=== PATIENT | male | born 1985 | race Caucasian/White ===

== ENCOUNTER 2023-03-01 18:09 | Emergency (ER) | payer OTHER | END 2023-03-01 18:33 | disposition left against medical advice (07) | LOC: ED 18:09 | DX: S61.452A Open bite of left hand, initial encounter (principal); S61.451A Open bite of right hand, initial encounter; Z53.21 Procedure and treatment not carried out due to patient leaving prior to being seen by health care provider; W54.0XXA Bitten by dog, initial encounter; Y93.89 Activity, other specified; Y92.89 Other specified places as the place of occurrence of the external cause; Y99.8 Other external cause status ==

== ENCOUNTER 2023-05-25 19:49 | Emergency (ER) | payer OTHER ==
[~2023-05-25] VITALS: Ht 175.2 cm; Wt 77.1 kg
[2023-05-25] MEDS ORDERED: PRILOSEC20 M1 PO (20:07)
[2023-05-25] MEDS ORDERED: AMOX-CLAV 875-1 EACH PO (20:16)
== END 2023-05-25 21:57 | disposition home or self-care (01) ==
LOC: ED 19:49
DX: K08.89 Other specified disorders of teeth and supporting structures (principal); F17.210 Nicotine dependence, cigarettes, uncomplicated; Z79.899 Other long term (current) drug therapy

== ENCOUNTER 2023-08-28 15:26 | Emergency (ER) | payer OTHER ==
[~2023-08-28] VITALS: Ht 175.2 cm; Wt 79.8 kg
[~2023-08-28 15:26] MED LIST: AMOX-CLAV 875-1 EACH PO; PRILOSEC20 M1 PO
[2023-08-28] MEDS ORDERED: AMOXICILLIN500 M3 PO (16:28)
[2023-08-28] MEDS ORDERED: NAPROSYN500 MG PO (16:28)
== END 2023-08-28 16:43 | disposition home or self-care (01) ==
LOC: ED 15:26
DX: K02.9 Dental caries, unspecified (principal); K21.9 Gastro-esophageal reflux disease without esophagitis; Z79.2 Long term (current) use of antibiotics; Z79.899 Other long term (current) drug therapy

== ENCOUNTER 2023-10-18 22:00 | Emergency (ER) | payer OTHER ==
[~2023-10-18] VITALS: Ht 175.2 cm; Wt 81.6 kg
[~2023-10-18 22:00] MED LIST changes: +AMOXICILLIN500 M3 PO; +NAPROSYN500 MG PO
[2023-10-18] MEDS ORDERED: Ketorolac Tromethamine 60 MG/2 ML VIAL IM ONE (23:20)
[2023-10-18] MEDS ORDERED: NAPROXEN250 MG PO (23:32)
== END 2023-10-18 23:44 | disposition home or self-care (01) ==
LOC: ED 22:00
DX: S93.402A Sprain of unspecified ligament of left ankle, initial encounter (principal); S83.92XA Sprain of unspecified site of left knee, initial encounter; W19.XXXA Unspecified fall, initial encounter; Y93.89 Activity, other specified; Y92.009 Unspecified place in unspecified non-institutional (private) residence as the place of occurrence of the external cause; Y99.8 Other external cause status

== ENCOUNTER 2023-10-22 00:24 | Emergency (ER) | payer OTHER ==
[~2023-10-22] VITALS: Ht 175.2 cm; Wt 81.6 kg
[~2023-10-22 00:24] MED LIST changes: +NAPROXEN250 MG PO
[2023-10-22] MEDS ORDERED: Amoxicillin/Clavulanate Pota 875 MG TAB PO ONE (00:55)
[2023-10-22] MEDS ORDERED: Ketorolac Tromethamine 30 MG/ML VIAL IM ONE (00:55)
== END 2023-10-22 01:06 | disposition home or self-care (01) ==
LOC: ED 00:24
DX: M25.562 Pain in left knee (principal); K08.89 Other specified disorders of teeth and supporting structures; G89.29 Other chronic pain; F17.210 Nicotine dependence, cigarettes, uncomplicated

== ENCOUNTER 2023-11-21 20:23 | Emergency (ER) | payer OTHER ==
[~2023-11-21] VITALS: Ht 175.2 cm; Wt 81.6 kg
[2023-11-21] MEDS ORDERED: Motrin,Rufen800 MG PO (21:04)
[2023-11-21] MEDS ORDERED: PENICILLIN VK500 MG PO (21:04)
[2023-11-21] MEDS ORDERED: PENICILLIN V POTASSIUM 500 MG TAB PO ONE (21:05)
[2023-11-21] MEDS ORDERED: Acetaminophen/Hydrocodone 5 MG/325 MG TABLET PO ONE (21:05)
[2023-11-21] MEDS ORDERED: Lidocaine Hydrochloride 15 ML UDC PO STA (21:06)
[2023-11-21] MEDS ORDERED: BENZOCAINE 20% 11.9 GM GEL T STA (21:06)
== END 2023-11-21 21:14 | disposition home or self-care (01) ==
LOC: ED 20:23
DX: K04.7 Periapical abscess without sinus (principal); K02.9 Dental caries, unspecified; Z87.891 Personal history of nicotine dependence

== ENCOUNTER 2024-02-26 21:07 | Emergency (ER) | payer OTHER ==
[~2024-02-26] VITALS: Ht 175.2 cm; Wt 77.1 kg
[~2024-02-26 21:07] MED LIST changes: +Motrin,Rufen800 MG PO; +PENICILLIN VK500 MG PO
[2024-02-26] MEDS ORDERED: AMOX-CLAV 875-1 EACH PO (21:49)
[2024-02-26] MEDS ORDERED: Amoxicillin/Clavulanate Pota 875 MG TAB PO ONE (21:50)
== END 2024-02-26 22:13 | disposition home or self-care (01) ==
LOC: ED 21:07
DX: S51.822A Laceration with foreign body of left forearm, initial encounter (principal); F17.200 Nicotine dependence, unspecified, uncomplicated; Z79.899 Other long term (current) drug therapy; W54.0XXA Bitten by dog, initial encounter; Y93.89 Activity, other specified; Y92.89 Other specified places as the place of occurrence of the external cause; Y99.8 Other external cause status

== ENCOUNTER 2024-02-29 19:02 | Emergency (ER) | payer OTHER ==
[~2024-02-29] VITALS: Ht 175.2 cm; Wt 69.4 kg
[2024-02-29 19:57] LABS: BASO % 0.3 % (0.0-1.0); EOS % 0.4 % (1.0-4.0); HEMATOCRIT 34.2 % (42.0-52.0); LYMPH # 1.6 10*3/uL (1.3-4.4); LYMPH % 17.2 % (27.0-41.0); MEAN CELL VOLUME 89.1 fl (80.0-94.0); MEAN CORPUSCULAR HGB 29.9 pg (27.0-31.0); MEAN CORPUSCULAR HGB CONC 33.6 g/dl (33.0-37.0); MEAN PLATELET VOLUME 9.3 fl (9.6-12.3); MONO % 10.5 % (3.0-9.0); NEUT # 6.6 10*3/uL (2.3-7.9); NEUT % 71.3 % (47.0-73.0); PLATELET COUNT AUTOMATED 191 10*3/uL (130-400); RED BLOOD COUNT 3.84 10*6/uL (4.50-5.90); RED CELL DISTRI WIDTH 13.1 % (0-14.5); WHITE BLOOD COUNT 9.3 10*3/uL (4.8-10.8)
[2024-02-29 20:20] LABS: ALKALINE PHOSPHATASE 73 U/L (46-116); BUN 15 mg/dl (9-23); CHLORIDE 109 mmol/L (98-107); CPK 997 U/L (34-171); POTASSIUM 3.7 mmol/L (3.4-5.1); SGPT/ALT 23 U/L (5-49); TOTAL PROTEIN 6.7 gm/dL (6.0-8.0)
[2024-02-29 20:22] LABS: ETHYL ALCOHOL < 3.0 mg/dl (<3)
[2024-02-29] MEDS ORDERED: LORazepam 1 MG TAB PO ONE (20:25)
[2024-02-29] MEDS ORDERED: SODIUM CHLORIDE 0.9% 1,000 ML IV ONE ×2 (20:35→20:40)
[2024-02-29 22:13] LABS: BILIRUBIN Negative (Negative); BLOOD Negative (Negative); CLARITY Clear (Clear); COLOR Yellow (Yellow); GLUCOSE Negative (Negative); KETONE Trace (Negative); LEUKO ESTERASE Negative (Negative); NITRITE Negative (Negative); PH 5.5 (4.5-8.0); SPECIFIC GRAVITY 1.015 (1.001-1.030)
[2024-02-29] MEDS ORDERED: SODIUM CHLORIDE 0.9% 1,000 ML IV SCH (22:20)
[2024-02-29 22:21] LABS: MUCOUS 1+; WBC 0-2 wbc/hpf (0-5)
[2024-02-29 22:28] LABS: URINE AMPHETAMINES Positive (1000ng/ml); URINE BARBITURATES Negative (200ng/ml); URINE BENZODIAZEPINES Negative (200ng/ml); URINE CANNABINOIDS (THC) Positive (50ng/ml); URINE COCAINE Negative (300ng/ml); URINE METHADONE Negative (300ng/ml); URINE OPIATES Negative (300ng/ml); URINE PHENCYCLIDINE Negative (25ng/ml)
== END 2024-03-01 09:05 | disposition home or self-care (01) ==
LOC: ED 19:02
PROVIDERS: Nurse Practitioner
DX: M62.82 Rhabdomyolysis (principal); F15.90 Other stimulant use, unspecified, uncomplicated; D64.9 Anemia, unspecified; Z79.2 Long term (current) use of antibiotics; Z79.899 Other long term (current) drug therapy

== ENCOUNTER 2024-03-06 10:19 | Emergency (ER) | payer OTHER ==
[~2024-03-06] VITALS: Ht 175.2 cm; Wt 70.3 kg
[2024-03-06] MEDS ORDERED: PROTONIX40 MG PO (10:53)
[2024-03-06] MEDS ORDERED: Rabies Vaccine 1 ML VIAL IM ONE (10:55)
[2024-03-06 11:08] LABS: BASO % 0.3 % (0.0-1.0); EOS # 0.1 10*3/uL (0.0-0.4); EOS % 2.2 % (1.0-4.0); HEMATOCRIT 36.8 % (42.0-52.0); LYMPH # 1.7 10*3/uL (1.3-4.4); MEAN CELL VOLUME 90.2 fl (80.0-94.0); MEAN CORPUSCULAR HGB 29.4 pg (27.0-31.0); MEAN CORPUSCULAR HGB CONC 32.6 g/dl (33.0-37.0); MEAN PLATELET VOLUME 8.9 fl (9.6-12.3); MONO # 0.7 10*3/uL (0.1-1.0); MONO % 11.2 % (3.0-9.0); NEUT # 3.4 10*3/uL (2.3-7.9); NEUT % 56.6 % (47.0-73.0); PLATELET COUNT AUTOMATED 187 10*3/uL (130-400); RED BLOOD COUNT 4.08 10*6/uL (4.50-5.90); RED CELL DISTRI WIDTH 13.1 % (0-14.5)
[2024-03-06 11:27] LABS: BUN 11 mg/dl (9-23); CHLORIDE 108 mmol/L (98-107); POTASSIUM 3.8 mmol/L (3.4-5.1)
[2024-03-06] MEDS ORDERED: OMEPRAZOLE40 MG PO (12:16)
== END 2024-03-06 12:05 | disposition home or self-care (01) ==
LOC: ED 10:19
PROVIDERS: Internal Medicine
DX: Z76.0 Encounter for issue of repeat prescription (principal); Z23 Encounter for immunization

== ENCOUNTER 2024-03-09 08:48 | Emergency (ER) | payer OTHER ==
[~2024-03-09] VITALS: Ht 175.2 cm; Wt 72.6 kg
[~2024-03-09 08:48] MED LIST changes: +OMEPRAZOLE40 MG PO; +PROTONIX40 MG PO
[2024-03-09] MEDS ORDERED: Rabies Vaccine 1 ML VIAL IM ONE (09:15)
[2024-03-09] MEDS ORDERED: NICOTINE LOZENGE2 MG BC (09:24)
[2024-03-09] MEDS ORDERED: NICODERM CQ1 EAC2 T (09:24)
== END 2024-03-09 09:34 | disposition home or self-care (01) ==
LOC: ED 08:48
DX: S41.152D Open bite of left upper arm, subsequent encounter (principal); Z87.891 Personal history of nicotine dependence; W54.0XXD Bitten by dog, subsequent encounter

== ENCOUNTER 2024-03-20 10:54 | Emergency (ER) | payer OTHER ==
[~2024-03-20] VITALS: Ht 175.2 cm; Wt 78.9 kg
[~2024-03-20 10:54] MED LIST changes: +NICODERM CQ1 EAC2 T; +NICOTINE LOZENGE2 MG BC
[2024-03-20] MEDS ORDERED: Rabies Vaccine 1 ML VIAL IM ONE (11:10)
== END 2024-03-20 11:25 | disposition home or self-care (01) ==
LOC: ED 10:54
DX: S51.812D Laceration without foreign body of left forearm, subsequent encounter (principal); Z23 Encounter for immunization; W54.0XXD Bitten by dog, subsequent encounter

== ENCOUNTER 2024-08-13 08:03 | Emergency (ER) | payer OTHER ==
[~2024-08-13] VITALS: Ht 175.2 cm; Wt 71.7 kg
[2024-08-13] MEDS ORDERED: BUPRENORPHINE-1 EAC2 SL (08:17)
[2024-08-13] MEDS ORDERED: EMTRICITABINE-1 EACH PO (08:17)
[2024-08-13] MEDS ORDERED: DOXEPIN HCL50 MG PO (08:18)
[2024-08-13] MEDS ORDERED: BUSPIRONE HCL7.5 MG PO (08:18)
[2024-08-13] MEDS ORDERED: MELOXICAM15 MG PO (08:18)
[2024-08-13] MEDS ORDERED: AVPAK AZITHROM250 M1 PO (08:35)
== END 2024-08-13 08:57 | disposition home or self-care (01) ==
LOC: ED 08:03
DX: J32.9 Chronic sinusitis, unspecified (principal)

== ENCOUNTER 2025-04-10 16:08 | Emergency (ER) | payer OTHER ==
[~2025-04-10] VITALS: Ht 175.2 cm; Wt 65.8 kg
[~2025-04-10 16:08] MED LIST changes: +AVPAK AZITHROM250 M1 PO; +BUPRENORPHINE-1 EAC2 SL; +BUSPIRONE HCL7.5 MG PO; +DOXEPIN HCL50 MG PO; +EMTRICITABINE-1 EACH PO; +MELOXICAM15 MG PO
[2025-04-10] MEDS ORDERED: PENICILLIN V POTASSIUM 500 MG TAB PO ONE (18:15)
== END 2025-04-10 18:20 | disposition home or self-care (01) ==
LOC: ED 16:08
DX: K04.7 Periapical abscess without sinus (principal); K02.9 Dental caries, unspecified

== ENCOUNTER 2025-04-12 08:56 | Emergency (ER) | payer OTHER ==
[~2025-04-12] VITALS: Ht 175.2 cm; Wt 63.5 kg
[2025-04-12] MEDS ORDERED: CLINDAMYCIN HCL 300 MG CAPSULE PO ONE (09:20)
[2025-04-12] MEDS ORDERED: Amoxicillin/Clavulanate Pota 875 MG TAB PO ONE (09:20)
[2025-04-12] MEDS ORDERED: CLINDAMYCIN HC300 MG PO (09:21)
[2025-04-12] MEDS ORDERED: AMOX-CLAV 875-1 EACH PO (09:21)
== END 2025-04-12 09:35 | disposition home or self-care (01) ==
LOC: ED 08:56
DX: K02.9 Dental caries, unspecified (principal); K04.7 Periapical abscess without sinus; Z79.899 Other long term (current) drug therapy

== ENCOUNTER 2025-07-03 06:15 | Emergency (ER) | payer OTHER ==
[~2025-07-03] VITALS: Ht 177.8 cm; Wt 81.6 kg
[~2025-07-03 06:15] MED LIST changes: +CLINDAMYCIN HC300 MG PO
[2025-07-03 06:57] LABS: BASO # 0.0 10*3/uL (0.0-0.1); BASO % 0.5 % (0.0-1.0); EOS # 0.2 10*3/uL (0.0-0.4); EOS % 2.8 % (1.0-4.0); MEAN CELL VOLUME 88.8 fl (80.0-94.0); MEAN CORPUSCULAR HGB 29.4 pg (27.0-31.0); MEAN PLATELET VOLUME 9.0 fl (9.6-12.3); MONO # 0.6 10*3/uL (0.1-1.0); MONO % 9.9 % (3.0-9.0); NEUT # 3.4 10*3/uL (2.3-7.9); NEUT % 59.5 % (47.0-73.0); NUCLEATED RED BLOOD CELL 0.0 % (0.0-0.0); NUCLEATED RED BLOOD CELL 0.0 10*3/uL (0.0-0.0); PLATELET COUNT AUTOMATED 177 10*3/uL (130-400); RED CELL DISTRI WIDTH 13.0 % (0-14.5)
[2025-07-03 07:32] LABS: BUN 16 mg/dl (9-23)
[2025-07-03 07:33] LABS: ETHYL ALCOHOL < 3.0 mg/dl (<3)
[2025-07-03] MEDS ORDERED: AMOX-CLAV 875-1 EACH PO (08:40)
== END 2025-07-03 08:59 | disposition home or self-care (01) ==
LOC: ED 06:15
PROVIDERS: Emergency Medicine
DX: S02.40DA Maxillary fracture, left side, initial encounter for closed fracture (principal); S01.511A Laceration without foreign body of lip, initial encounter; M54.2 Cervicalgia; Z79.899 Other long term (current) drug therapy; V89.2XXA Person injured in unspecified motor-vehicle accident, traffic, initial encounter; Y93.I9 Activity, other involving external motion; Y92.488 Other paved roadways as the place of occurrence of the external cause; Y99.8 Other external cause status